=== PATIENT | male | born 1960 | race Caucasian/White ===

== ENCOUNTER 2018-08-09 07:03 | Day surgery (SDC) | payer OTHER ==
[~2018-08-09] VITALS: Ht 180.3 cm; Wt 79.6 kg
[2018-08-09] VITALS (9 sets, daily range): BP systolic 112–149; BP diastolic 68–87; PULSE 54–68; TEMP 98.2
[~2018-08-09 07:03] MED LIST: CENTRUM SILVER1 TA1 PO; CLARITIN10 MG PO; CRANBERRY CONC500 MG PO; DARVOCET N 101 UDTAB PO; FLUTICASON0.05 MG/AC NS; GLUCOPHAGE500 MG/TAB PO; MICARDIS HCT 251 TAB PO; MICARDIS80 MG PO; NORCO 325 MG-7.1 TAB PO; OCUVITE1 TA1 PO; OMEGA-31000 MG PO; VALTREX PO; VYTORIN 10 MG-21 TAB PO
[2018-08-09 07:31] LABS: HEMATOCRIT 41.4 % (42.0-52.0); HEMOGLOBIN 14.7 g/dl (13.5-18.0); MEAN CELL VOLUME 90 fl (80.0-100.0); MEAN CORPUSCULAR HEMOGLOBIN 32 pg (27.0-31.0); MEAN CORPUSCULAR HGB CONC 36 g/dl (33.0-37.0); MEAN PLATELET VOLUME 9.3 fl (7.4-10.4); PLATELET COUNT 220 K/mm3 (130-400); REDCELL DISTRIBUTION WIDTH-CV 12.7 % (11.5-14.5)
[2018-08-09 07:42] LABS: CALCIUM 9.2 mg/dL (8.4-10.2); CREATININE, serum 0.87 mg/dL (0.66-1.25); POTASSIUM 4.7 mmol/L (3.4-5.0)
[2018-08-09 07:42] LABS: PROTHROMBIN TIME 11.4 SECONDS (9.7-12.8)
[2018-08-09] MEDS ORDERED: CRESTOR20 MG PO (08:20)
[2018-08-09] MEDS ORDERED: TOPROL XL 25MG25 MG PO (09:47)
== END 2018-08-09 13:36 | disposition home or self-care (01) ==
LOC: COL.CAR 07:03
PROVIDERS: Internal Medicine Cardiovascular Disease
DX: I25.10 Atherosclerotic heart disease of native coronary artery without angina pectoris (principal); R94.39 Abnormal result of other cardiovascular function study; I10 Essential (primary) hypertension; E78.5 Hyperlipidemia, unspecified; I08.1 Rheumatic disorders of both mitral and tricuspid valves; E11.9 Type 2 diabetes mellitus without complications; Z79.84 Long term (current) use of oral hypoglycemic drugs; Z88.0 Allergy status to penicillin; Z88.2 Allergy status to sulfonamides; Z88.8 Allergy status to other drugs, medicaments and biological substances; Z88.6 Allergy status to analgesic agent; Z87.891 Personal history of nicotine dependence; Z82.3 Family history of stroke; Z81.8 Family history of other mental and behavioral disorders
CPT/HCPCS: J1644; J2250; J3010; Q9967

== ENCOUNTER → 2019-08-31 | Outpatient (CLI) | payer OTHER ==
[~2019-08-31] MED LIST changes: +CRESTOR20 MG PO; +TOPROL XL 25MG25 MG PO
== END ==
LOC: COL.RAD 10:11
DX: M48.02 Spinal stenosis, cervical region (principal); M50.11 Cervical disc disorder with radiculopathy, high cervical region